=== PATIENT | male | born 1940 | race Caucasian/White ===

== ENCOUNTER 2016-09-18 10:54 | Day surgery (SDC) | payer MEDICARE, BC, OTHER ==
[2016-09-12 09:54] VITALS: BMI 28.1
[~2016-09-18 10:54] MED LIST: LACTATED RINGERS 1,000 ML IV SCH
[2016-09-18] MEDS: PHENYLEPHRINE 10% OPHTH DROPS 5 ML BTL OP ONE ×3 (11:38→12:08)
[2016-09-18] MEDS: CYCLOPENTOLATE 1% OPHTH SOLN 2 ML BTL OP ONE ×3 (11:45→12:12)
[2016-09-18 11:47] VITALS: TEMP 97.8
[2016-09-18] MEDS: FLURBIPROFEN 0.03% OPHTH DROPS 2.5 ML BTL OP ONE ×3 (11:56→12:16)
[2016-09-18 11:57] LABS: Glucose,Whole Blood 134 mg/dL (75-99)
[2016-09-18] MEDS ORDERED: LIDOCAINE 1% 20 ML VIAL (10MG/ML) FOR IV START INTRADERMA ONE (12:00)
[2016-09-18] MEDS ORDERED: PROPOFOL 10 MG/ML 20 ML VIAL IV ONE (12:30)
[2016-09-18] MEDS ORDERED: TETRACAINE 0.5% OPHTH (PF) DROPS 4 ML BTL LEFT EYE ONE (12:30)
[2016-09-18] MEDS ORDERED: EPINEPHrine (PF) 0.5 ML in BALANCED SALT IRRIG SOLN COMB2 500 ML IRRIGATION ONE (12:38)
[2016-09-18] MEDS ORDERED: HYALURONATE SODIUM INTRAOCULAR 1 EACH SYRINGE (10MG/ML) INTRAOCULA ONE (12:38)
[2016-09-18] MEDS ORDERED: BALANCED SALT IRRIG SOLN COMB2 15 ML IRRIG.SOLN INTRAOCULA ONE (12:38)
--- NOTE | 2016-09-18 12:58 | P.OP ---
Date of Procedure: 09/18/16 Preoperative Diagnosis: Postoperative Diagnosis: Procedure(s) Performed: PREOPERATIVE DIAGNOSIS: Cataract, left eye. POSTOPERATIVE DIAGNOSIS: Cataract, left eye. OPERATION: Phacoemulsification cataract, left eye. DESCRIPTION OF PROCEDURE: The patient was taken to the preoperative holding area. Intravenous Propofol was given so as to bring about adequate sedation. The following mixture was given for local anesthesia: 5 mL of 2% lidocaine, 5 mL of 0.75% Marcaine, and 1 mL of Wydase. Approximately 4 mL was injected in the retrobulbar space of the surgical eye. Additional 1 mL was then directed to the temporal area of the surgical eye. This was performed to allow adequate neurological block of the facial muscles. The patient was revived and then taken into the operative room. The patient was prepped and draped in the usual sterile manner for the operative eye. A lid speculum was put into position. The conjunctiva was resected back from the limbus in the 12 o'clock position. Bleeding was controlled with electrocautery. A #69 blade was then used and a half-thickness scleral incision approximately 1-mm posterior to the limbus was made on bare sclera. This was shelved in the clear cornea using a crescent knife. The steep axis of astigmatism was marked using a pre-inked corneal marking device. Next a 15-degree blade was used to make a stab incision at the 3 o'clock position at the corneolimbal interface. Keratome blade was then used and the superior wound was extended into the anterior chamber. Viscoelastic was injected into the anterior chamber and to maintain its form. Next, a cystotome was used and a continuous anterior capsulotomy was made without difficulty. Hydrodissection using a blunt cannula and BSS was performed. Phaco probe was then employed and a groove extending from 12 to 6 o' clock in the lens was created. A Reji wand was used through the stab incision so as to perform a divide and conquer technique. Next an irrigation aspiration probe was utilized and any residual cortex was removed from the eye. Again, viscoelastic was injected into the anterior chamber. An ENID toric Symfony posterior chamber lens implant was placed in the cartridge and injected into the anterior chamber without difficulty. The [place] hook was utilized to spin the lens into position and this was again performed without any difficulty. The irrigation and aspiration probe was again employed and any residual viscoelastic was removed from the eye. Then BSS was injected into the limbal stab incision and the anterior chamber re-inflated. The conjunctiva was reapproximated using electrocautery. One drop of 0.25% Timoptic was placed over the corneal along with TobraDex ophthalmic ointment. Two sterile patches and a Packer eye shield were taped into position. The patient was transported to the recovery room in stable condition. Implants: Pathology: none sent Condition: stable Disposition: same day Indications for Procedure: Operative Findings: Description of Procedure:
[2016-09-18 13:01] VITALS: RESP 16
[2016-09-18 13:23] VITALS: BP 116/59; PULSE 62
[2016-09-18] MEDS ORDERED: BUPIVACAINE (PF) 0.75% 5 ML, LIDOCAINE 4% (PF) 5 ML, HYALURONIDASE, HUMAN RECOMB 150 UNIT MISCELLANE ONE ×3 (23:00)
[2016-09-18] MEDS ORDERED: TIMOLOL 0.5% OPHTH SOLN (PF) 0.2 ML DROPERETTE OP ONE (23:00)
[2016-09-18] MEDS ORDERED: GENTAMICIN/PREDNISOL AC OPHTH OINT 3.5GM OPHTHALMIC ONE (23:00)
== END 2016-09-18 13:48 | disposition home or self-care (01) ==
LOC: OR 10:54
PROVIDERS: ATTEND Ophthalmology
DX: H25.13 Age-related nuclear cataract, bilateral (principal); Z88.5 Allergy status to narcotic agent; E11.9 Type 2 diabetes mellitus without complications; I10 Essential (primary) hypertension; K21.9 Gastro-esophageal reflux disease without esophagitis; H52.202 Unspecified astigmatism, left eye; G47.33 Obstructive sleep apnea (adult) (pediatric); Z79.84 Long term (current) use of oral hypoglycemic drugs; Z79.82 Long term (current) use of aspirin; Z79.899 Other long term (current) drug therapy; Z86.73 Personal history of transient ischemic attack (TIA), and cerebral infarction without residual deficits; Z85.46 Personal history of malignant neoplasm of prostate; Z95.810 Presence of automatic (implantable) cardiac defibrillator; Z79.02 Long term (current) use of antithrombotics/antiplatelets
CPT/HCPCS: 66984; V2787; C1780; J2001; J3470; J0171; J2704

== ENCOUNTER 2016-11-06 11:02 | Day surgery (SDC) | payer MEDICARE, BC ==
[2016-10-29 15:27] VITALS: BMI 28.1
[~2016-11-06 11:02] MED LIST changes: +LIDOCAINE 1% 20 ML VIAL (10MG/ML) FOR IV START INTRADERMA PRN
[2016-11-06] MEDS: PHENYLEPHRINE 10% OPHTH DROPS 5 ML BTL OP ONE ×2 (12:21→12:49)
[2016-11-06] MEDS: CYCLOPENTOLATE 1% OPHTH SOLN 2 ML BTL OP ONE ×2 (12:23→12:58)
[2016-11-06] MEDS: FLURBIPROFEN 0.03% OPHTH DROPS 2.5 ML BTL OP ONE ×3 (12:25→13:03)
[2016-11-06 12:34] VITALS: TEMP 96.7
[2016-11-06 12:41] LABS: Glucose,Whole Blood 118 mg/dL (75-99)
[2016-11-06] MEDS ORDERED: PROPOFOL 10 MG/ML 20 ML VIAL IV ONE (13:27)
[2016-11-06] MEDS ORDERED: EPINEPHrine (PF) 0.5 ML in BALANCED SALT IRRIG SOLN COMB2 500 ML IRRIGATION ONE (13:28)
[2016-11-06] MEDS ORDERED: BALANCED SALT IRRIG SOLN COMB2 15 ML IRRIG.SOLN IRRIGATION ONE (13:29)
[2016-11-06] MEDS ORDERED: HYALURONATE SODIUM INTRAOCULAR 1 EACH SYRINGE (10MG/ML) INTRAOCULA ONE (13:29)
[2016-11-06] MEDS ORDERED: TETRACAINE 0.5% OPHTH (PF) DROPS 4 ML BTL RIGHT EYE ONE (13:29)
--- NOTE | 2016-11-06 13:54 | P.OP ---
Date of Procedure: 11/06/16 Preoperative Diagnosis: Postoperative Diagnosis: Procedure(s) Performed: PREOPERATIVE DIAGNOSIS: Cataract, right eye. POSTOPERATIVE DIAGNOSIS: Cataract, right eye. OPERATION: Phacoemulsification cataract, right eye. DESCRIPTION OF PROCEDURE: The patient was taken to the preoperative holding area. Intravenous Propofol was given so as to bring about adequate sedation. The following mixture was given for local anesthesia: 5 mL of 2% lidocaine, 5 mL of 0.75% Marcaine, and 1 mL of Wydase. Approximately 4 mL was injected in the retrobulbar space of the surgical eye. Additional 1 mL was then directed to the temporal area of the surgical eye. This was performed to allow adequate neurological block of the facial muscles. The patient was revived and then taken into the operative room. The patient was prepped and draped in the usual sterile manner for the operative eye. A lid speculum was put into position. The conjunctiva was resected back from the limbus in the 12 o'clock position. Bleeding was controlled with electrocautery. A #69 blade was then used and a half-thickness scleral incision approximately 1-mm posterior to the limbus was made on bare sclera. This was shelved in the clear cornea using a crescent knife. The steep axis of astigmatism was marked using a pre-inked corneal marking device. Next a 15-degree blade was used to make a stab incision at the 3 o'clock position at the corneolimbal interface. Keratome blade was then used and the superior wound was extended into the anterior chamber. Viscoelastic was injected into the anterior chamber and to maintain its form. Next, a cystotome was used and a continuous anterior capsulotomy was made without difficulty. Hydrodissection using a blunt cannula and BSS was performed. Phaco probe was then employed and a groove extending from 12 to 6 o' clock in the lens was created. A Reji wand was used through the stab incision so as to perform a divide and conquer technique. Next an irrigation aspiration probe was utilized and any residual cortex was removed from the eye. Again, viscoelastic was injected into the anterior chamber. An ENID Symfony toric posterior chamber lens implant was placed in the cartridge and injected into the anterior chamber without difficulty. The [place]key hook was utilized to spin the lens into position and this was again performed without any difficulty. The irrigation and aspiration probe was again employed and any residual viscoelastic was removed from the eye. Then BSS was injected into the limbal stab incision and the anterior chamber re-inflated. The conjunctiva was reapproximated using electrocautery. One drop of 0.25% Timoptic was placed over the corneal along with TobraDex ophthalmic ointment. Two sterile patches and a Packer eye shield were taped into position. The patient was transported to the recovery room in stable condition. Implants: Pathology: none sent Condition: stable Disposition: same day Indications for Procedure: Operative Findings: Description of Procedure:
[2016-11-06 13:56] VITALS: RESP 18
[2016-11-06 14:17] VITALS: BP 119/62; PULSE 60
[2016-11-06] MEDS ORDERED: GENTAMICIN/PREDNISOL AC OPHTH OINT 3.5GM OPHTHALMIC ONE (23:00)
[2016-11-06] MEDS ORDERED: TIMOLOL 0.5% OPHTH SOLN (PF) 0.2 ML DROPERETTE OP ONE (23:00)
[2016-11-06] MEDS ORDERED: BUPIVACAINE (PF) 0.75% 5 ML, LIDOCAINE 4% (PF) 5 ML, HYALURONIDASE, HUMAN RECOMB 150 UNIT MISCELLANE ONE ×3 (23:00)
== END 2016-11-06 14:43 | disposition home or self-care (01) ==
LOC: OR 11:02
PROVIDERS: ATTEND Ophthalmology
DX: H25.11 Age-related nuclear cataract, right eye (principal); H52.201 Unspecified astigmatism, right eye; E11.9 Type 2 diabetes mellitus without complications; I10 Essential (primary) hypertension; I25.10 Atherosclerotic heart disease of native coronary artery without angina pectoris; I25.5 Ischemic cardiomyopathy; K21.9 Gastro-esophageal reflux disease without esophagitis; Z95.1 Presence of aortocoronary bypass graft; Z95.810 Presence of automatic (implantable) cardiac defibrillator; Z86.73 Personal history of transient ischemic attack (TIA), and cerebral infarction without residual deficits; Z79.84 Long term (current) use of oral hypoglycemic drugs; Z79.82 Long term (current) use of aspirin; Z79.899 Other long term (current) drug therapy; Z88.8 Allergy status to other drugs, medicaments and biological substances
CPT/HCPCS: 66984; V2787; C1780; J2001; J3470; J0171; J2704

== ENCOUNTER → 2018-01-20 | Outpatient (CLI) | payer MEDICARE, BC ==
--- NOTE | 2018-01-20 09:24 | US ---
EXAMINATION TYPE: US pelvic limited DATE OF EXAM: 01/20/2018 COMPARISON: NONE CLINICAL HISTORY: R19.7 Diarrhea. Diarrhea. Patient states no urinary symptoms. Bladder-anechoic, slightly lobulated in contour although incompletely distended Bilateral jets seen Adnexa- wnl, peristalsing bowel visualized IMPRESSION: Slightly lobulated contour of the urinary bladder without urinary bladder wall thickenin g. This may relate to incomplete distention although correlation with urinalysis is advised.
--- NOTE | 2018-01-20 09:26 | US ---
EXAMINATION TYPE: US abdomen complete DATE OF EXAM: 01/20/2018 COMPARISON: NONE CLINICAL HISTORY: R19.7 Diarrhea. Patient states having diarrhea after eating. GB removed x 25 years ago. No pain. NPO. Patient states having pancreatic surgery but doesn't remember specific details --no portions were removed? EXAM MEASUREMENTS: Liver Length: 14.0 cm CHD: 0.6 cm Spleen: 10.5 cm Right Kidney: 9.3 x 4.7 x 4.2 cm Left Kidney: 10.5 x 5.3 x 6.0 cm Pancreas: Head and tail not well visualized due to overlying bowel gas. Pancreatic duct is within no rmal limits measuring 1.5 mm in the pancreatic body. Liver: wnl Gallbladder: Surgically absent Evidence for sonographic Galvan's sign: neg CBD: Obscured by overlying bowel gas CHD: wnl Spleen: wnl Right Kidney: Cortical cystic appearing lesion in upper/mid pole = 0.9 x 0.8 x 1.0 cm. Appears lobul ar in appearance. Mild renal cortical thinning is seen. Left Kidney: Appears lobular in appearance. Mild renal cortical thinning is seen. Upper IVC: wnl Abd Aorta: wnl, portions obscured by overlying bowel gas. Plaque seen. The liver is homogenous. The intrahepatic portion of the IVC and proximal abdominal aorta are within normal limits. Common bile duct is unremarkable. The visualized portions of the pancreas are homog enous. The spleen is unremarkable. Kidneys are symmetric and free of hydronephrosis. IMPRESSION: 1. Surgical absence of the gallbladder. 2. Right-sided small cortical renal cysts and findings suggesting early medical renal disease.
== END | disposition home or self-care (01) ==
LOC: RADUSWWP 07:47
PROVIDERS: ATTEND Family Medicine
DX: N28.1 Cyst of kidney, acquired (principal); N32.89 Other specified disorders of bladder; R19.7 Diarrhea, unspecified; Z90.49 Acquired absence of other specified parts of digestive tract
CPT/HCPCS: 76700; 76857

== ENCOUNTER → 2020-07-28 | Outpatient (CLI) | payer MEDICARE, BC ==
--- NOTE | 2020-07-28 11:44 | XR ---
EXAMINATION TYPE: XR knee complete RT DATE OF EXAM: 07/28/2020 CLINICAL HISTORY: Increasing pain over several months. TECHNIQUE: Three views of the right knee are obtained. COMPARISON: None. FINDINGS: There is no acute fracture/dislocation evident in the right knee. Mild to moderate tricomp artment joint space loss greatest patellofemoral and medial tibiofemoral compartments. Mild spurring patellofemoral compartment. The overlying soft tissue appears unremarkable. IMPRESSION: As above.
== END | disposition home or self-care (01) ==
LOC: RADXRYALE 11:20
PROVIDERS: ATTEND Physician Assistant
DX: M76.891 Other specified enthesopathies of right lower limb, excluding foot (principal)

== ENCOUNTER → 2020-09-05 | Outpatient (CLI) | payer MEDICARE, BC ==
--- NOTE | 2020-09-06 07:13 | CT ---
EXAMINATION TYPE: CT abdomen pelvis wo con DATE OF EXAM: 09/05/2020 HISTORY: LLQ pain, abdomen tenderness. Uncontrollable bowels CT DLP: 381.80 mGycm. Automated Exposure Control for Dose Reduction was Utilized. TECHNIQUE: CT scan of the abdomen and pelvis is performed without oral or IV contrast. COMPARISON: NONE FINDINGS: Within the limitations of a non-contrast study, the following observations are made. LUNG BASES: Mild to moderate bibasilar linear scarring and/or atelectasis with peripheral reticulatio n and fibrotic change. Cardiomegaly with partial visualization of right-sided pacemaker leads. The [place] ing sternal wires partially imaged. LIVER/GB: Cholecystectomy clips. PANCREAS: Generalized atrophy and glanular calcifications consistent with products of chronic pancrea titis. SPLEEN: No significant abnormality is seen. ADRENALS: No significant abnormality is seen. KIDNEYS: There is 1.8 cm thin-walled cyst laterally upper to mid pole right kidney coronal image 46. Single punctate 1 to 2 mm calculus lower pole right kidney suspected coronal image 45. No hydronephro sis or obstructing renal calculi bilaterally. BOWEL: Diverticula in the sigmoid colon. Stomach poorly distended and thus suboptimally evaluated. No rmal-appearing appendix from cecum in the right lower quadrant. No suspicious small or large bowel di latation. GENITAL ORGANS: Numerous brachytherapy seeds in normal size prostate. LYMPH NODES: No greater than 1cm abdominal or pelvic lymph nodes are appreciated. OSSEOUS STRUCTURES: Moderate to severe multilevel disc space narrowing L3-L4 through the L5-S1 levels . Endplate sclerosis L3-L4 level. Vacuum disc phenomenon L5-S1 level. Facet arthropathy lower lumbar levels. OTHER: [id number] calcified plaque of the aorta extends into branch vessels. IMPRESSION: Sigmoid colonic diverticulosis without CT evidence for acute diverticulitis. No bowel obs truction. No acute findings are evident.
== END | disposition home or self-care (01) ==
LOC: RADCTMAIN 14:30
PROVIDERS: ATTEND Family Medicine
DX: K57.30 Diverticulosis of large intestine without perforation or abscess without bleeding (principal)
CPT/HCPCS: 74176

== ENCOUNTER 2021-09-20 06:49 | Day surgery (SDC) | payer MEDICARE, BC ==
[2021-09-19 11:47] VITALS: BMI 23.2
[~2021-09-20 06:49] MED LIST changes: +ALPRAZolam 0.25 MG TAB PO PRN; +ALPRAZolam 0.5 MG TAB PO PRN; +ASPIRIN 325 MG TAB PO STA; +ATORVASTATIN 80 MG TAB PO STA; +HEPARIN SODIUM,PORCINE 10,000 UNIT in SODIUM CHLORIDE 0.9% 1,000 ML IRRIGATION PRN; +HEPARIN SODIUM,PORCINE 2,500 UNIT in SODIUM CHLORIDE 0.9% 250 ML IRRIGATION PRN; -LACTATED RINGERS 1,000 ML IV SCH; -LIDOCAINE 1% 20 ML VIAL (10MG/ML) FOR IV START INTRADERMA PRN; +NITROGLYCERIN SL TABS 0.4 MG TAB SUBLINGUAL PRN; +SODIUM CHLORIDE 0.9% 1,000 ML in EMPTY BAG 1 BAG IV SCH
[2021-09-20 07:22] VITALS: RESP 18; TEMP 98.8
[2021-09-20 07:25] LABS: Glucose,Whole Blood 101 mg/dL (75-99)
[2021-09-20] MEDS ORDERED: fentaNYL (PF) 50 MCG/ML 2 ML AMP ONE (09:39)
[2021-09-20] MEDS ORDERED: fentaNYL (PF) 50 MCG/ML 2 ML AMP IV ONE (10:15)
[2021-09-20] MEDS ORDERED: MIDAZOLAM 2 MG/2 ML VIAL IV ONE (10:15)
[2021-09-20] MEDS ORDERED: LIDOCAINE 1% INJ 10MG/ML (30 ML VIAL-PF) SQ ONE (10:17)
[2021-09-20] MEDS ORDERED: IOPAMIDOL-370 125ML BTL INJ ONE (10:32)
[2021-09-20] MEDS ORDERED: RX INFO: IV CONTRAST WAS GIVEN 1 EACH MISC MISCELLANE PRN (11:13)
[2021-09-20] MEDS ORDERED: FUROSEMIDE 10 MG/ML 2 ML VIAL IV ONE (11:21)
[2021-09-20] MEDS ORDERED: SODIUM CHLORIDE 0.9% 1,000 ML IV SCH (11:30)
--- NOTE | 2021-09-20 12:36 | CC ---
CARDIAC CATHETERIZATION REPORT INDICATION: Ventricular tachycardia in a patient with known CAD, status post prior bypass surgery with ARRIOLA to LAD, venous graft to diagonal, and venous graft to OM with a large dominant right coronary artery that did not have significant disease. Patient has renal insufficiency. We hydrated him a bit on his initial presentation and made every effort to use as little contrast as we could. PROCEDURE NOTE: After obtaining informed consent, left heart catheterization, coronary angiogram and selective injection of the bypass grafts were performed via the right femoral artery using standard Jillian catheters. Patient tolerated the procedure well without any obvious immediate complications. A femoral angiogram was performed and Angio-Seal will be deployed for hemostasis. Patient received moderate conscious sedation. Total sedation time was 18 minutes. Patient received a total contrast of about 50 mL and his contrast threshold was 143. FINDING: HEMODYNAMICS: Left ventricular end-diastolic pressure is 6 to 8 mm. There is no significant gradient across the aortic valve. LEFT VENTRICULOGRAM: Left ventriculogram was not performed. ANGIOGRAPHIC DATA: [place] coronary arteries: Right coronary artery is a large dominant vessel and is free of significant disease. Left main coronary artery is a short vessel and is free of significant stenosis. It divides into left anterior descending coronary artery and circumflex coronary artery. LAD shows a 90% stenosis in its proximal portion and is totally occluded in its mid portion. There is competitive flow noted within the OM branch and the LAD. Selective injection of the bypass grafts: ARRIOLA to LAD appears patent. Proximal and distal anastomotic sites are free of significant disease. Body of the graft is free of significant disease and the ambler LAD does not show significant stenosis. Venous graft to the diagonal branch appears occluded. Venous graft to the OM appears patent with proximal and distal anastomotic sites free of significant disease. Body of the graft is free of disease and his own arteries are free of significant stenosis. CONCLUSIONS: 1. Two-vessel coronary artery disease as described above with patent ARRIOLA to LAD and venous graft to OM with occluded venous graft to the diagonal. 2. Normal large dominant right coronary artery free of significant stenosis. PLAN: Patient's ventricular tachycardia does not seem to be related to ischemia. We will treat him with optimal medical therapy and if necessary add antiarrhythmics. MMODL / IJN: [id number] /
--- NOTE | 2021-09-20 12:43 | LTR ---
September 20, 2021 To: Dr. Tony Amezquita Re: Luis Herr (42) Dear Tony, I performed cardiac catheterization on Luis Herr. A detailed catheterization note is enclosed for your records. This is an 81-year-old gentleman with known coronary artery disease, status post prior bypass surgery, who recently presented to me with recurrent episodes of ventricular tachycardia. I advised him to undergo cardiac catheterization to rule out significant obstructive CAD to rule out ischemia as an etiology for his ventricular tachycardia. I am happy to report to you that while he has [place] severe two-vessel coronary artery disease, the right coronary artery that was not previously bypassed appears normal without significant disease, and two out of his three bypass grafts are patent: ARRIOLA to LAD and venous graft to OM. The diagonal branch graft is occluded, but the [place] diagonals do not require catheter-based revascularization at this time. Thank you for giving me the privilege of participating in the care of this pleasant gentleman. Sincerely, Yinka Spears M.D. CORNELIA / SHANNAN: [id number] /
[2021-09-20 15:08] VITALS: BP 114/55; PULSE 50
== END 2021-09-20 16:11 | disposition home or self-care (01) ==
LOC: CATHCVL 06:49
PROVIDERS: ATTEND Internal Medicine Cardiovascular Disease
DX: I47.2 Ventricular tachycardia (principal); I25.10 Atherosclerotic heart disease of native coronary artery without angina pectoris
CPT/HCPCS: 93459; C1760; C1894; C1769; J2250; J1940; J2001; J3010; Q9967

== ENCOUNTER → 2021-12-21 | Outpatient (CLI) | payer MEDICARE, BC | END | disposition home or self-care (01) | LOC: LABWHC1 11:30 | PROVIDERS: ATTEND Nurse Practitioner Family | DX: I47.2 Ventricular tachycardia (principal) | CPT/HCPCS: 36415; 84443; 84450; 84460 ==